=== PATIENT | male | born 1965 | race Caucasian/White ===

== ENCOUNTER 2017-09-19 08:33 | Inpatient (IN) | payer BC ==
[~2017-09-19] VITALS: Ht 172.7 cm; Wt 93.9 kg
[2017-09-19] MEDS ORDERED: METF-444 PO (08:40)
[2017-09-19 08:49] LABS: GLUCOSE,POINT OF CARE 260 MG/DL (70-110)
[2017-09-19] MEDS ORDERED: SODIUM CHLORIDE 0.9% 1,000 ML IV ONE ×5 (08:56→12:15)
[2017-09-19] MEDS ORDERED: 0.9% SODIUM CHLORIDE 10 ML SYRINGE IVP PRN ×2 (09:00→11:00)
[2017-09-19] MEDS ORDERED: ACETAMINOPHEN 325 MG TABLET PO ONE (09:00)
[2017-09-19 09:14] LABS: BASOPHILS % (AUTO) 0.8 % (0.0-2.0); EOSINOPHILS % (AUTO) 0.1 % (1.0-6.0); HEMATOCRIT 45.7 % (41-53); HEMOGLOBIN 16.1 g/dL (13.5-17.5); LYMPHOCYTES # (AUTO) 1.6 K/uL (1.0-4.8); LYMPHOCYTES % (AUTO) 15.7 % (22.0-44.0); MEAN CORPUSCULAR HEMOGLOBIN 29.1 pg (26.0-34.0); MEAN CORPUSCULAR HGB CONC 35.1 G/dL (31.0-37.0); MEAN CORPUSCULAR VOLUME 83 fL (80-100); MONOCYTES # (AUTO) 0.1 K/uL (0.1-1.0); NEUTROPHILS # (AUTO) 8.2 K/uL (1.8-7.7); NEUTROPHILS % (AUTO) 82.4 % (40.0-70.0); PLATELET COUNT (AUTO) 190 K/uL (150-450); RED BLOOD CELL COUNT(AUTO) 5.52 MIL/uL (4.50-5.90); RED CELL DISTRIBUTION WIDTH 13.4 % (11.5-14.5)
[2017-09-19 09:18] LABS: APPEARANCE,URINE TURBID (CLEAR); GLUCOSE, URINE (UA) >=1000 mg/dL (NEGATIVE); KETONES,URINE TRACE mg/dL (NEGATIVE); LEUKOCYTE ESTERASE ,URINE MODERATE (NEGATIVE); NITRATE,URINE POSITIVE (NEGATIVE); OCCULT BLOOD,URINE LARGE (NEGATIVE); PROTEIN,URINE SEE CONFIRM (NEGATIVE)
[2017-09-19 09:23] LABS: ANION GAP 20 mmol/L (8-16); CALCIUM, TOTAL 9.2 mg/dL (8.8-10.5); CARBON DIOXIDE 18 mmol/L (22-29); CHLORIDE 97 mmol/L (98-107); CREATININE 1.09 mg/dL (0.60-1.30); GLOMERULAR FILTR. RATE CALC > 60 mL/min (>60); GLUCOSE,RANDOM 281 mg/dL (70-110); POTASSIUM 3.6 mmol/L (3.5-5.1); SODIUM SERUM 135 mmol/L (136-145); UREA NITROGEN, BLOOD 8 mg/dL (7-18)
[2017-09-19 09:24] LABS: BILIRUBIN,URINE PRELIM. POSITIVE (NEGATIVE)
[2017-09-19 09:27] LABS: BACTERIA,URINE None Seen /HPF (None Seen); RBC,URINE >100 /HPF (0-2); SQUAMOUS EPITHELIAL CELL,UR Few /LPF (None Seen); SULFOSALICYLIC ACID,URINE 4+ (Negative)
[2017-09-19 09:27] LABS: INR 1.1 (0.9-1.1); PROTHROMBIN TIME 11.1 SEC (9.4-11.6)
[2017-09-19 09:28] LABS: ALANINE AMINOTRANSFERASE 41 U/L (12-78); ALBUMIN 3.7 g/dL (3.4-5.0); ALKALINE PHOSPHATASE 87 U/L (46-116); ASPARTATE AMINOTRANSFERASE 15 U/L (15-37); BILIRUBIN,TOTAL 1.1 mg/dL (0.1-1.0); TOTAL PROTEIN, SERUM 7.7 g/dL (6.4-8.2)
[2017-09-19] MEDS ORDERED: CefTRIAXone SODIUM 1 GM in DEXTROSE 5%-WATER 10 ML IV ONE (09:30)
[2017-09-19 09:43] LABS: B-TYPE NATRIURETIC PEPTIDE 31 pg/mL (0-100)
[2017-09-19] MEDS ORDERED: SODIUM CHLORIDE 0.9% 100 ML ONE (09:45)
[2017-09-19] MEDS ORDERED: IOVERSOL 350 MG/ML 100 ML VIAL ONE (09:45)
[2017-09-19 09:47] LABS: LACTIC ACID 6.5 mmol/L (0.4-2.0)
[2017-09-19 10:52] LABS: GLUCOSE,POINT OF CARE 234 MG/DL (70-110)
[2017-09-19] MEDS ORDERED: ONDANSETRON HCL 4 MG/2 ML VIAL IVP PRN ×2 (11:00)
[2017-09-19] MEDS ORDERED: MAGNESIUM HYDROXIDE SUSPENSION 30 ML UDCUP PO PRN (11:00)
[2017-09-19] MEDS ORDERED: ACETAMINOPHEN 325 MG TABLET PO PRN (11:00)
[2017-09-19] MEDS ORDERED: OxyCODONE HCL/ACETAMINOPHEN 5-325 MG TABLET PO PRN (11:00)
[2017-09-19] MEDS ORDERED: DEXTROSE 50%-WATER 25 GM/50 ML SYRINGE IVP PRN (11:00)
[2017-09-19] MEDS: INSULIN LISPRO 100 UNITS/ML SQ PRN ×3 (13:17→20:48)
[2017-09-19 13:24] VITALS: BP 106/69
[2017-09-19 14:24] LABS: GLUCOMETER DEV NAME(LOC) 5N 1P; GLUCOSE,POINT OF CARE 265 MG/DL (70-110)
[2017-09-19 15:35] VITALS: BP 130/82
[2017-09-19] MEDS: ACETAMINOPHEN 325 MG TABLET PO PRN ×2 (15:52→20:42)
[2017-09-19] MEDS ORDERED: GEMF600T5 PO (15:59)
[2017-09-19] MEDS ORDERED: PNEUMOCOCCAL VACCINE POLYVALENT 0.5 ML VIAL [PPSV23] IM ONE (18:00)
[2017-09-19 20:22] VITALS: BP 138/78
[2017-09-19] MEDS: DOCUSATE SODIUM 100 MG CAPSULE PO SCH (20:41)
[2017-09-19] MEDS: PHENAZOPYRIDINE HCL 100 MG TABLET PO SCH (20:42)
[2017-09-19 20:59] LABS: GLUCOMETER DEV NAME(LOC) 5N 2S; GLUCOSE,POINT OF CARE 228 MG/DL (70-110)
[2017-09-19 20:59] LABS: GLUCOMETER DEV NAME(LOC) 5N 2S; GLUCOSE,POINT OF CARE 257 MG/DL (70-110)
[2017-09-20] VITALS (7 sets, daily range): BP systolic 124–153; BP diastolic 72–99
[2017-09-20 05:14] LABS: GLUCOMETER DEV NAME(LOC) 5N 1P; GLUCOSE,POINT OF CARE 246 MG/DL (70-110)
[2017-09-20] MEDS: ACETAMINOPHEN 325 MG TABLET PO PRN ×2 (05:49→15:02)
[2017-09-20] MEDS: INSULIN LISPRO 100 UNITS/ML SQ PRN ×4 (05:54→21:49)
[2017-09-20 06:40] LABS: ALANINE AMINOTRANSFERASE 39 U/L (12-78); ALKALINE PHOSPHATASE 67 U/L (46-116); ANION GAP 13 mmol/L (8-16); ASPARTATE AMINOTRANSFERASE 32 U/L (15-37); CALCIUM, TOTAL 8.5 mg/dL (8.8-10.5); CARBON DIOXIDE 21 mmol/L (22-29); CHLORIDE 100 mmol/L (98-107); CREATININE 0.61 mg/dL (0.60-1.30); GLOMERULAR FILTR. RATE CALC > 60 mL/min (>60); GLUCOSE,RANDOM 208 mg/dL (70-110); POTASSIUM 3.1 mmol/L (3.5-5.1); SODIUM SERUM 134 mmol/L (136-145); TOTAL PROTEIN, SERUM 6.8 g/dL (6.4-8.2); UREA NITROGEN, BLOOD 9 mg/dL (7-18)
[2017-09-20] MEDS ORDERED: POTASSIUM CHL 10 MEQ/WATER 50 ML IV PRN (08:00)
[2017-09-20] MEDS ORDERED: SODIUM CHLORIDE 0.9% 1,000 ML IV ONE (08:00)
[2017-09-20] MEDS ORDERED: BARIUM SULFATE 0.1% SUSPENSION 450 ML BOTTLE ONE ×2 (08:11→08:12)
[2017-09-20] MEDS: CefTRIAXone SODIUM 1 GM in DEXTROSE 5%-WATER 10 ML IV SCH (09:44)
[2017-09-20] MEDS: PANTOPRAZOLE SODIUM 40 MG DR TABLET PO SCH (09:45)
[2017-09-20] MEDS: POTASSIUM CHLORIDE 20 MEQ ER TABLET PO PRN (09:45)
[2017-09-20] MEDS: PHENAZOPYRIDINE HCL 100 MG TABLET PO SCH ×3 (09:45→21:49)
[2017-09-20] MEDS: DOCUSATE SODIUM 100 MG CAPSULE PO SCH ×2 (09:45→21:00)
[2017-09-20 12:29] LABS: GLUCOMETER DEV NAME(LOC) 5N 1P; GLUCOSE,POINT OF CARE 213 MG/DL (70-110)
[2017-09-20] MEDS: LEVOFLOXACIN 250 MG TABLET PO SCH (17:46)
[2017-09-21] VITALS (7 sets, daily range): BP systolic 131–155; BP diastolic 83–95
[2017-09-21] MEDS: INSULIN LISPRO 100 UNITS/ML SQ PRN ×4 (06:03→21:56)
[2017-09-21] MEDS: ACETAMINOPHEN 325 MG TABLET PO PRN (06:05)
[2017-09-21 06:30] LABS: BASOPHILS % (AUTO) 0.3 % (0.0-2.0); EOSINOPHILS % (AUTO) 1.6 % (1.0-6.0); HEMATOCRIT 39.9 % (41-53); HEMOGLOBIN 13.8 g/dL (13.5-17.5); LYMPHOCYTES # (AUTO) 0.9 K/uL (1.0-4.8); LYMPHOCYTES % (AUTO) 9.7 % (22.0-44.0); MEAN CORPUSCULAR HEMOGLOBIN 28.7 pg (26.0-34.0); MEAN CORPUSCULAR HGB CONC 34.5 G/dL (31.0-37.0); MEAN CORPUSCULAR VOLUME 83 fL (80-100); MONOCYTES # (AUTO) 0.9 K/uL (0.1-1.0); MONOCYTES % (AUTO) 9.2 % (2.0-9.0); NEUTROPHILS # (AUTO) 7.7 K/uL (1.8-7.7); NEUTROPHILS % (AUTO) 79.2 % (40.0-70.0); PLATELET COUNT (AUTO) 134 K/uL (150-450); RED CELL DISTRIBUTION WIDTH 13.5 % (11.5-14.5)
[2017-09-21 06:51] LABS: ANION GAP 10 mmol/L (8-16); CALCIUM, TOTAL 8.8 mg/dL (8.8-10.5); CARBON DIOXIDE 24 mmol/L (22-29); CHLORIDE 98 mmol/L (98-107); CREATININE 0.66 mg/dL (0.60-1.30); GLOMERULAR FILTR. RATE CALC > 60 mL/min (>60); GLUCOSE,RANDOM 173 mg/dL (70-110); POTASSIUM 3.4 mmol/L (3.5-5.1); SODIUM SERUM 132 mmol/L (136-145); UREA NITROGEN, BLOOD 8 mg/dL (7-18)
[2017-09-21] MEDS: DOCUSATE SODIUM 100 MG CAPSULE PO SCH ×2 (08:22→21:54)
[2017-09-21] MEDS: PANTOPRAZOLE SODIUM 40 MG DR TABLET PO SCH (08:22)
[2017-09-21] MEDS: PHENAZOPYRIDINE HCL 100 MG TABLET PO SCH ×2 (08:23→17:32)
[2017-09-21] MEDS: LEVOFLOXACIN 250 MG TABLET PO SCH (08:23)
[2017-09-21] MEDS ORDERED: POTASSIUM CHLORIDE 10 MEQ ER TABLET PO ONE (10:15)
[2017-09-21] MEDS: CefTRIAXone SODIUM 1 GM in DEXTROSE 5%-WATER 10 ML IV SCH (10:55)
[2017-09-21 11:29] LABS: GLUCOMETER DEV NAME(LOC) 5N 2S; GLUCOSE,POINT OF CARE 208 MG/DL (70-110)
[2017-09-21 11:29] LABS: GLUCOMETER DEV NAME(LOC) 5N 2S; GLUCOSE,POINT OF CARE 207 MG/DL (70-110)
[2017-09-21 11:29] LABS: GLUCOMETER DEV NAME(LOC) 5N 2S; GLUCOSE,POINT OF CARE 190 MG/DL (70-110)
[2017-09-21 11:29] LABS: GLUCOMETER DEV NAME(LOC) 5N 2S; GLUCOSE,POINT OF CARE 203 MG/DL (70-110)
[2017-09-21 12:18] LABS: GLUCOMETER DEV NAME(LOC) 5N 1P; GLUCOSE,POINT OF CARE 236 MG/DL (70-110)
[2017-09-21] MEDS: MetFORMIN HCL 500 MG TABLET PO SCH (17:32)
[2017-09-22 04:14] VITALS: BP 127/90
[2017-09-22] MEDS: INSULIN LISPRO 100 UNITS/ML SQ PRN ×4 (06:16→20:50)
[2017-09-22 07:40] VITALS: BP 134/90
[2017-09-22] MEDS: DOCUSATE SODIUM 100 MG CAPSULE PO SCH ×2 (08:10→20:47)
[2017-09-22] MEDS: PANTOPRAZOLE SODIUM 40 MG DR TABLET PO SCH (08:11)
[2017-09-22] MEDS: LEVOFLOXACIN 250 MG TABLET PO SCH (08:11)
[2017-09-22] MEDS: MetFORMIN HCL 500 MG TABLET PO SCH ×2 (08:11→17:53)
[2017-09-22] MEDS: POTASSIUM CHLORIDE 20 MEQ ER TABLET PO PRN (08:11)
[2017-09-22] MEDS: CefTRIAXone SODIUM 1 GM in DEXTROSE 5%-WATER 10 ML IV SCH (10:11)
[2017-09-22 11:27] VITALS: BP 134/76
[2017-09-22 14:55] LABS: GLUCOMETER DEV NAME(LOC) 5N 1P; GLUCOSE,POINT OF CARE 194 MG/DL (70-110)
[2017-09-22 14:55] LABS: GLUCOMETER DEV NAME(LOC) 5N 1P; GLUCOSE,POINT OF CARE 259 MG/DL (70-110)
[2017-09-22 14:55] LABS: GLUCOMETER DEV NAME(LOC) 5N 1P; GLUCOSE,POINT OF CARE 201 MG/DL (70-110)
[2017-09-22 16:15] VITALS: BP 135/78
[2017-09-22 17:47] LABS: GLUCOMETER DEV NAME(LOC) 6N 2D; GLUCOSE,POINT OF CARE 227 MG/DL (70-110)
[2017-09-22 18:04] LABS: GLUCOMETER DEV NAME(LOC) 5N 1P; GLUCOSE,POINT OF CARE 248 MG/DL (70-110)
[2017-09-22 19:55] VITALS: BP 137/94
[2017-09-23 00:16] VITALS: BP 142/90
[2017-09-23 01:29] LABS: GLUCOMETER DEV NAME(LOC) 6N 1E; GLUCOSE,POINT OF CARE 193 MG/DL (70-110)
[2017-09-23 04:42] VITALS: BP 152/94
[2017-09-23 06:18] LABS: BASOPHILS % (AUTO) 0.7 % (0.0-2.0); EOSINOPHILS % (AUTO) 3.8 % (1.0-6.0); HEMATOCRIT 40.8 % (41-53); HEMOGLOBIN 14.1 g/dL (13.5-17.5); LYMPHOCYTES # (AUTO) 1.8 K/uL (1.0-4.8); LYMPHOCYTES % (AUTO) 23.9 % (22.0-44.0); MEAN CORPUSCULAR HEMOGLOBIN 28.7 pg (26.0-34.0); MEAN CORPUSCULAR HGB CONC 34.6 G/dL (31.0-37.0); MEAN CORPUSCULAR VOLUME 83 fL (80-100); MONOCYTES % (AUTO) 12.8 % (2.0-9.0); NEUTROPHILS # (AUTO) 4.5 K/uL (1.8-7.7); NEUTROPHILS % (AUTO) 58.8 % (40.0-70.0); PLATELET COUNT (AUTO) 175 K/uL (150-450); RED BLOOD CELL COUNT(AUTO) 4.93 MIL/uL (4.50-5.90); RED CELL DISTRIBUTION WIDTH 13.4 % (11.5-14.5)
[2017-09-23] MEDS: INSULIN LISPRO 100 UNITS/ML SQ PRN ×4 (06:33→20:51)
[2017-09-23] MEDS: MetFORMIN HCL 500 MG TABLET PO SCH ×2 (06:35→18:01)
[2017-09-23 07:19] LABS: GLUCOMETER DEV NAME(LOC) 6N 1E; GLUCOSE,POINT OF CARE 180 MG/DL (70-110)
[2017-09-23 07:43] VITALS: BP 137/90
[2017-09-23] MEDS: PANTOPRAZOLE SODIUM 40 MG DR TABLET PO SCH (08:38)
[2017-09-23] MEDS: LEVOFLOXACIN 250 MG TABLET PO SCH (08:38)
[2017-09-23] MEDS: DOCUSATE SODIUM 100 MG CAPSULE PO SCH ×2 (08:39→20:49)
[2017-09-23 11:21] VITALS: BP 140/96
[2017-09-23 12:18] LABS: GLUCOMETER DEV NAME(LOC) 6N 1E; GLUCOSE,POINT OF CARE 229 MG/DL (70-110)
[2017-09-23] MEDS: CefTRIAXone SODIUM 1 GM in DEXTROSE 5%-WATER 10 ML IV SCH (12:26)
[2017-09-23 18:19] LABS: GLUCOMETER DEV NAME(LOC) 6N 1E; GLUCOSE,POINT OF CARE 241 MG/DL (70-110)
[2017-09-23 19:27] VITALS: BP 132/84
[2017-09-23 23:23] VITALS: BP 143/88
[2017-09-23 23:38] LABS: GLUCOMETER DEV NAME(LOC) 6N 2D; GLUCOSE,POINT OF CARE 181 MG/DL (70-110)
[2017-09-24 04:20] VITALS: BP 141/88
[2017-09-24] MEDS: INSULIN LISPRO 100 UNITS/ML SQ PRN ×2 (05:26→11:56)
[2017-09-24 06:47] LABS: ANION GAP 10 mmol/L (8-16); CARBON DIOXIDE 26 mmol/L (22-29); CHLORIDE 100 mmol/L (98-107); CREATININE 0.62 mg/dL (0.60-1.30); GLOMERULAR FILTR. RATE CALC > 60 mL/min (>60); GLUCOSE,RANDOM 228 mg/dL (70-110); POTASSIUM 3.6 mmol/L (3.5-5.1); SODIUM SERUM 136 mmol/L (136-145); UREA NITROGEN, BLOOD 12 mg/dL (7-18)
[2017-09-24] MEDS: LEVOFLOXACIN 250 MG TABLET PO SCH (08:02)
[2017-09-24] MEDS: MetFORMIN HCL 500 MG TABLET PO SCH (08:02)
[2017-09-24] MEDS: PANTOPRAZOLE SODIUM 40 MG DR TABLET PO SCH (08:02)
[2017-09-24 08:05] VITALS: BP 146/97
[2017-09-24] MEDS: DOCUSATE SODIUM 100 MG CAPSULE PO SCH (08:39)
[2017-09-24 11:14] LABS: GLUCOMETER DEV NAME(LOC) 6N 2D; GLUCOSE,POINT OF CARE 223 MG/DL (70-110)
[2017-09-24 11:14] LABS: GLUCOMETER DEV NAME(LOC) 6N 2D; GLUCOSE,POINT OF CARE 239 MG/DL (70-110)
[2017-09-24 11:57] VITALS: BP 139/88
== END 2017-09-24 13:25 | disposition home or self-care (01) | DRG 872 ==
LOC: EMS 08:34 → 5N 11:08 → 6N 09-22 16:00
PROVIDERS: ADMIT Internal Medicine; ATTEND Internal Medicine
DX: A41.51 Sepsis due to Escherichia coli [E. coli] (principal); E87.2 Acidosis; N39.0 Urinary tract infection, site not specified; E11.9 Type 2 diabetes mellitus without complications; E66.9 Obesity, unspecified; N20.0 Calculus of kidney; E87.6 Hypokalemia; Z83.3 Family history of diabetes mellitus; Z68.31 Body mass index [BMI] 31.0-31.9, adult
CPT/HCPCS: 74177; 83605; 84132; 87040; 87086; 87205; 93005; 96374; 99291; J0696; J2405; J7030; J7050; J7060